=== PATIENT | male | born 1960 | race Caucasian/White ===

== ENCOUNTER → 2023-01-22 07:01 | Outpatient (CLI) | payer OTHER ==
[2023-01-22 07:46] LABS: PH,URINE 6.5 (5.0-8.0); URINE APPEARANCE Clear; URINE BILIRRUBIN Negative (NEGATIVE); URINE BLOOD Negative; URINE COLOR Yellow; URINE GLUCOSE Negative (NEGATIVE); URINE LEUKOCYTE Negative; URINE NITRATE Negative; URINE PROTEIN Negative (NEGATIVE); URINE UROBILINOGEN 0.2 E.U./dl
[2023-01-22 08:12] LABS: HEMATOCRIT 45.2 % (39.0-48.0); HEMOGLOBIN 15.7 g/dL (13-16.00); MEAN CORPUSCULAR HEMOGLOBIN 30.9 pg (27.00-32.0); MEAN CORPUSCULAR HGB CONC 34.7 g/dl (32.0-36.0); PLATELET COUNT 199 K/uL (150-450); RED BLOOD COUNT 5.08 M/uL (4.00-6.00); RED CELL DISTRIBUTION WIDTH 12.8 % (11.5-14.5)
[2023-01-22 08:39] LABS: URINE EPITHELIAL CELLS 0.6 uL (0.0-38.8); URINE WBC 1.3 uL (0.0-23.2)
[2023-01-22 09:03] LABS: ALBUMIN 3.9 gm/dL (3.4-5.0); BILIRUBIN TOTAL 0.71 mg/dL (0.3-1.2); CALCIUM 8.5 mg/dL (8.5-10.1); CHOL HDL RATIO 2.6 (0-5.0); CREATININE SERUM 1.01 mg/dL (0.70-1.30); GFR 74.85; GLOBULINA 3.9 G/DL (2.4-3.5); POTASSIUM 4.41 mEq/L (3.5-5.1); PROSTATIC SPECIFIC ANTIGEN 1.64 NG/ML (0.010-4.00); TOTAL PROTEIN 7.8 gm/dL (6.4-8.2); TSH 4.23 uIU/mL (0.358-3.74)
== END | disposition home or self-care (01) ==
LOC: LAB 07:01
PROVIDERS: ATTEND General Practice
DX: N40.0 Benign prostatic hyperplasia without lower urinary tract symptoms (principal); E03.9 Hypothyroidism, unspecified; E11.9 Type 2 diabetes mellitus without complications; I10 Essential (primary) hypertension; E78.01 Familial hypercholesterolemia; E61.1 Iron deficiency